=== PATIENT | female | born 1985 | race Caucasian/White ===

== ENCOUNTER 2017-05-07 20:41 | Emergency (ER) | payer MEDICAID, OTHER ==
[~2017-05-07] VITALS: Ht 160 cm; Wt 75.0 kg
[2017-05-07 20:44] VITALS: Ht 160 cm; Wt 75.0 kg
[2017-05-07] MEDS ORDERED: ACETAMINOPHEN 325 MG TAB PO ONE (21:00)
[2017-05-07] MEDS ORDERED: ACET325T33 PO (22:09)
--- NOTE | 2017-05-07 23:05 | ERD ---
ER Documentation Chief Complaint Date/Time DATE: 05/07/17 TIME: 23:03 Chief Complaint right ear pain, 36 weeks denies OB problems HPI 31-year-old female patient with no significant past medical history presents to the ED complaining of right ear pain and a foreign body sensation noted of her right ear that started 3 days ago. Denies putting any foreign bodies in her right ear. Denies any use of Q-tips. Denies any fever, cough, chills, nausea, vomiting, chest pain, shortness of breath, abdominal pain. Patient reports that her last menses was in October 06, 2017. States that she is a . ROS All systems reviewed and are negative except as per history of present illness. Medications Home Meds Active Scripts Acetaminophen* (Tylenol*) 325 Mg Tablet, 1 TAB PO Q6 Y for PAIN AND OR ELEVATED TEMP, #20 TAB Prov:CHELE PEDRAZA PA-C 05/07/17 Allergies Allergies: Coded Allergies: No Known Allergy (Unverified , 05/07/17) PMhx/Soc Medical and Surgical Hx: pt denies Medical Hx, pt denies Surgical Hx Hx Alcohol Use: No Hx Substance Use: No Hx Tobacco Use: No Smoking Status: Never smoker Physical Exam Vitals Vital Signs Date Time Temp Pulse Resp B/P Pulse Ox O2 Delivery O2 Flow Rate FiO2 05/07/17 20:44 98.2 82 20 123/74 97 Physical Exam Const: Zya-rty-vrsonjzqx, well-nourished. In no acute distress. Head: Atraumatic, normocephalic Eyes: Normal Conjunctiva without injection. No purulent discharge. PERRL. EOMI ENT: Normal external ear. Ear canal without erythema. Tympanic membrane pearly floers without effusion or bulging. Nasal canal clear with normal turbinates. Moist oropharynx without tonsillar exudates. Non-erythematous pharynx. Uvula midline. No drooling. No trismus. Neck: Full range of motion. No meningismus. No cervical lymphadenopathy. Resp: Clear to auscultation bilaterally. No wheezing, rhonchi, rales, or crackles. No accessory muscle use. No retractions. Cardio: Regular rate and rhythm. No murmurs, rubs or gallops. Abd: Soft, non tender, non distended. Normal bowel sounds. No palpable masses. No rebound tenderness. No guarding. Skin: No petechiae or rashes Back: No midline tenderness. No CVA tenderness. Ext: No cyanosis, or edema. Neur: Awake and alert. Psych: Normal Mood and Affect Results 24 hrs Current Medications Medications (Trade) Dose Ordered Sig/Teresa Route PRN Reason Start Time Stop Time Status Last Admin Dose Admin Acetaminophen (Tylenol Tab) 650 mg ONCE ONCE PO 05/07/17 21:00 05/07/17 21:01 DC 05/07/17 21:08 Procedures/MDM 31-year-old female patient who is a presents to the ED complaining of right ear pain that started 3 days ago. Patient is afebrile and nontoxic- appearing. Patient has normal vital signs. Patient was given Tylenol here in the ED with improvement of her symptoms. Patient did not have any foreign bodies noted of the right ear. There is a low suspicion for otitis media, otitis externa, ruptured tympanic membrane. Patient is afebrile and has normal vital signs. Patient's physical exam include lungs which were clear to auscultation and a normal pulse oximetry. There is a low suspicion for pneumonia , pneumothorax, mononucleosis, pulmonary embolism, epiglottitis, otitis media, otitis externa, viral/strep pharyngitis, sinusitis, peritonsillar abscess, mastoiditis, retropharyngeal abscess, meningitis, sepsis, acute abdomen or other emergent conditions. Discharge medications: Tylenol Patient was instructed to return to the ED for any new or worsening symptoms for a referral to ENT specialist/neurologist. They should otherwise follow up with the primary care provider within 1-2 days. The patient's questions were answered at the time of discharge. Patient understood and agreed with discharge management. Departure Diagnosis: Primary Impression: Foreign body sensation in right ear canal Additional Impression: Right ear pain Condition: Stable Patient Instructions: Understanding Outer Ear Problems, Common Middle Ear Problems, Earache W/O Infection (Adult) Referrals: COMMUNITY CLINICS YOU HAVE RECEIVED A MEDICAL SCREENING EXAM AND THE RESULTS INDICATE THAT YOU DO NOT HAVE A CONDITION THAT REQUIRES URGENT TREATMENT IN THE EMERGENCY DEPARTMENT. FURTHER EVALUATION AND TREATMENT OF YOUR CONDITION CAN WAIT UNTIL YOU ARE SEEN IN YOUR DOCTORS OFFICE WITHIN THE NEXT 1-2 DAYS. IT IS YOUR RESPONSIBILITY TO MAKE AN APPOINTMENT FOR FOLOW-UP CARE. IF YOU HAVE A PRIMARY DOCTOR --you should call your primary doctor and schedule an appointment IF YOU DO NOT HAVE A PRIMARY DOCTOR YOU CAN CALL OUR PHYSICIAN REFERRAL HOTLINE AT IF YOU CAN NOT AFFORD TO SEE A PHYSICIAN YOU CAN CHOSE FROM THE FOLLOWING [facility] [address] [facility] [address] [facility] [address] [facility] [address] [facility] [address] [facility]. [facility] [address] [facility]. [facility] YOU HAVE RECEIVED A MEDICAL SCREENING EXAM AND THE RESULTS INDICATE THAT YOU DO NOT HAVE A CONDITION THAT REQUIRES URGENT TREATMENT IN THE EMERGENCY DEPARTMENT. FURTHER EVALUATION AND TREATMENT OF YOUR CONDITION CAN WAIT UNTIL YOU ARE SEEN IN YOUR DOCTORS OFFICE WITHIN THE NEXT 1-2 DAYS. IT IS YOUR RESPONSIBILITY TO MAKE AN APPOINTMENT FOR FOLOW-UP CARE. IF YOU HAVE A PRIMARY DOCTOR --you should call your primary doctor and schedule and appointment IF YOU DO NOT HAVE A PRIMARY DOCTOR YOU CAN CALL OUR PHYSICIAN REFERRAL HOTLINE AT . IF YOU CAN NOT AFFORD TO SEE A PHYSICIAN YOU CAN CHOSE FROM THE FOLLOWING [facility]: [facility] [address] [place] [address] [facility] [address] [place] [address] [facility] + [facility] [address] [place] [address] [facility] URGENT [facility]/SPECIALTIES Additional Instructions: Visite a garcia mdico cedricana para un EXAMEN para caitlin referencia a un especialista en odos nariz garganta y neurlogo. Regrese a estas instalaciones si no se mejora deanna esperbamos o deanna le dijimos. CHELE PEDRAZA PA-C May 07, 2017 23:05 CHELE PEDRAZA PA-C May 07, 2017 23:05
== END 2017-05-07 22:15 | disposition home or self-care (01) ==
LOC: FTE 20:41
DX: H92.01 Otalgia, right ear (principal)
CPT/HCPCS: Z7502; Z7610; 99283

== ENCOUNTER 2017-06-07 07:05 | Inpatient (IN) | payer MEDICAID ==
[2017-06-07] VITALS (7 sets, daily range): BP systolic 110–138; BP diastolic 56–85; PULSE 63–77; RESP 18–19; Ht 149.9 cm; Wt 79.4 kg
[~2017-06-07] VITALS: Ht 149.9 cm; Wt 79.4 kg
[~2017-06-07 07:05] MED LIST: ACET325T33 PO
[2017-06-07] MEDS ORDERED: PREN1TAB17 PO (07:26)
[2017-06-07] MEDS ORDERED: OXYTOCIN 30 UNITS/LR 500 ML IV SCH (07:30)
[2017-06-07] MEDS ORDERED: OXYTOCIN 30 UNITS/LR 500 ML IV PRN ×2 (07:30→13:00)
[2017-06-07] MEDS ORDERED: CARBOPROST 250 MCG INJ IM PRN ×2 (07:30→13:00)
[2017-06-07] MEDS ORDERED: MISOPROSTOL 200 MCG TAB PR PRN ×2 (07:30→13:00)
[2017-06-07] MEDS ORDERED: METHYLERGONOVINE 0.2 MG INJ IM PRN ×2 (07:30→13:00)
[2017-06-07] MEDS ORDERED: CEFAZOLIN 2 GM/50 ML (PMX) 50 ML IV SCH (07:30)
[2017-06-07 08:00] LABS: WHITE BLOOD COUNT 9.6 10^3/ul (4.8-10.8)
[2017-06-07 08:01] LABS: BASOPHILS % 0.3 % (0.0-2.0); EOSINOPHILS # 0.9 10^3/ul (0.0-0.5); EOSINOPHILS % 9.6 % (0.0-7.0); HEMATOCRIT 39.5 % (37.0-47.0); HEMOGLOBIN 13.3 g/dl (12.0-16.0); LYMPHOCYTES # 2.1 10^3/ul (0.8-2.9); LYMPHOCYTES % 22.1 % (15.0-51.0); MEAN CORPUSCULAR HEMOGLOBIN 31.1 pg (29.0-33.0); MEAN CORPUSCULAR HGB CONC 33.7 g/dl (32.0-37.0); MEAN CORPUSCULAR VOLUME 92.3 fl (82.0-101.0); MEAN PLATELET VOLUME 10.6 fl (7.4-10.4); MONOCYTE # 0.7 10^3/ul (0.3-0.9); MONOCYTES % 7.2 % (0.0-11.0); NEUTROPHIL # 5.7 10^3/ul (1.6-7.5); NEUTROPHILS % 59.6 % (39.0-77.0); PLATELET COUNT 228 10^3/UL (140-415); RED BLOOD COUNT 4.28 10^6/ul (4.20-5.40); RED CELL DISTRIBUTION WIDTH 13.7 % (11.5-14.5)
[2017-06-07] MEDS ORDERED: LACTATED RINGER'S 1,000 ML IV ONE (08:30)
[2017-06-07 08:57] LABS: INR 0.9; PROTIME 12.1 Sec (12.2-14.2); PT RATIO 0.9
[2017-06-07 08:58] LABS: PARTIAL THROMBOPLASTIN TIME 28.2 Sec (25.0-35.0)
[2017-06-07] MEDS ORDERED: METOCLOPRAMIDE 10 MG INJ ONE (09:20)
[2017-06-07] MEDS ORDERED: ONDANSETRON 4 MG INJ ONE (09:20)
[2017-06-07] MEDS ORDERED: morphine SULFATE/PF (10 MG/10 ML) INJ ONE (09:20)
[2017-06-07] MEDS ORDERED: OXYTOCIN 10 UNIT INJ ONE (09:20)
[2017-06-07] MEDS ORDERED: EPHEDrine SULFATE 50 MG/5 ML SYG ONE (09:20)
[2017-06-07] MEDS ORDERED: OXYTOCIN 30 UNITS/LR 500 ML IV ONE (09:20)
[2017-06-07] MEDS ORDERED: NALOXONE (0.4 MG/ML) INJ IV PRN (10:30)
[2017-06-07] MEDS ORDERED: HYDROmorphONE 1 MG/ML SYG IV PRN ×2 (10:30)
[2017-06-07] MEDS ORDERED: EPHEDrine SULFATE 50 MG/5 ML SYG IV PRN (10:30)
[2017-06-07] MEDS ORDERED: DIPHENHYDRAMINE 50 MG INJ IV PRN (10:30)
[2017-06-07] MEDS ORDERED: morphine 2 MG INJ IV PRN ×2 (10:30)
[2017-06-07] MEDS ORDERED: ONDANSETRON 4 MG INJ IV PRN (10:30)
[2017-06-07] MEDS ORDERED: KETOROLAC 30 MG INJ IV PRN (10:30)
[2017-06-07] MEDS ORDERED: morphine SULFATE/PF (10 MG/10 ML) INJ SPINAL ONE (10:30)
--- NOTE | 2017-06-07 10:53 | HP ---
Date/Time of Note Date/Time of Note DATE: 06/07/17 TIME: 10:51 OB - History Hx of Present Free Text/Dictation @39+wks GA wiith previous c/section : 2 Para: 1 Care: Good Care Ultrasounds: Normal mid trimester US Obstetrical Complications: None Medical Complications: None Past Family/Social History * Past Medical, Surgical, Family and Obstetric Histories reviewed from chart. OB Admission Exam Vital Signs Vital Signs Vital Signs Date Time Temp Pulse Resp B/P Pulse Ox O2 Delivery O2 Flow Rate FiO2 06/07/17 07:20 98.1 120/79 Physical Exam Abdomen: WNL Extremities: Normal Membranes: Intact Heart Rate: 140's Decelerations: No Decelerations Varibility: Moderate Contractions on Admission: None Last 72 hours Lab Results CBC & BMP 06/07/17 07:47 OB Assessment/Plan Reason for admission: section MELANI HUNT M.D. Jun 07, 2017 10:53
--- NOTE | 2017-06-07 10:55 | OPR ---
Operative Report Planned Procedure Free Text/Dictation @39+wks GA onel previous c/section Procedure date Jun 07, 2017 Procedure(s) Repeat c/section Performed by: MELANI HUNT M.D. Assisting provider: CORNELIA TRAORE MD Anesthesiologist: JUAN KIRK MD Pre-procedure diagnosis @39+wks GA onel previous c/section Anesthesia Type: spinal Procedure Description Under satisfactory [] anesthesia, the patient was prepped and draped and placed in a supine position, tilted to the left. Pfannenstiel incision was made, carried through the subcutaneous tissue. Bleeders brought under control with electrocautery. Fascia incised to the length of the incision. Rectus muscles from the fascia, divided midline. Peritoneum exposed, entered through a transverse incision. Exploration of abdomen revealed gravid uterus. Bladder flap was developed. Transverse incision was made in the lower segment of the uterus. Amniotic sac ruptured. [] amniotic fluid noted. [] Nasal oropharyngeal suction was performed. The baby was handed to the team for immediate attention. The placenta was delivered manually intact. Uterine cavity was cleaned with wet sponge and drainage established. Uterus closed in 2 layers using [] in continuous fashion. Peritoneal cavity irrigated with warm saline. Sponge, needle and instrument count reported to be correct. Abdominal peritoneum closed with [] continuously. Rectus muscle approximated with []. Fascia closed with [], and skin closed with dermoband. Estimated blood loss [600 ]mL. Urine bag contained []mL of urine Post-Procedure Findings: Live Baby [], Apgars [] and [], weight [], position [], [] presentation []cord. Complications: None Pt Condition post procedure: stable Disposition: PACU Physician Certification I, the undersigned physician, hereby certify that I have discussed the procedure described in this consent form with this patient (or the patient's legal insurance verification representative), including: * The risk and benefits of the procedure; * Any adverse reactions that may reasonably be expected to occur; * Any alternative efficacious methods of treatment which may be medically viable ; * The potential problems that may occur during recuperation; * Potential for blood transfusion and associated risks/benefits; and * Any research or economic interest I may have regarding this treatment. I further certify that the patient/legally responsible person was encouraged to ask question and that all questions were answered. MELANI HUNT M.D. Jun 07, 2017 10:55
[2017-06-07] MEDS: LACTATED RINGER'S 1,000 ML IV SCH ×2 (12:48→18:55)
[2017-06-07] MEDS ORDERED: LANOLIN 7 GM TUBE TOP PRN (13:00)
[2017-06-07] MEDS: SENNA/DOCUSATE NA (8.6MG/50MG) TAB PO SCH (21:30)
[2017-06-08 00:30] VITALS: BP 117/58; PULSE 72; RESP 19
[2017-06-08] MEDS: LACTATED RINGER'S 1,000 ML IV SCH ×2 (03:15→12:48)
[2017-06-08 04:00] VITALS: BP 114/56; PULSE 75; RESP 19
[2017-06-08 08:00] VITALS: BP 116/71; PULSE 73; RESP 16
[2017-06-08] MEDS: SENNA/DOCUSATE NA (8.6MG/50MG) TAB PO SCH ×2 (08:57→21:40)
[2017-06-08 10:33] LABS: BASOPHILS % 0.2 % (0.0-2.0); EOSINOPHILS # 0.5 10^3/ul (0.0-0.5); HEMATOCRIT 36.6 % (37.0-47.0); HEMOGLOBIN 12.4 g/dl (12.0-16.0); LYMPHOCYTES # 1.3 10^3/ul (0.8-2.9); LYMPHOCYTES % 12.3 % (15.0-51.0); MEAN CORPUSCULAR HEMOGLOBIN 31.6 pg (29.0-33.0); MEAN CORPUSCULAR HGB CONC 33.9 g/dl (32.0-37.0); MEAN CORPUSCULAR VOLUME 93.1 fl (82.0-101.0); MEAN PLATELET VOLUME 10.9 fl (7.4-10.4); MONOCYTE # 0.6 10^3/ul (0.3-0.9); MONOCYTES % 5.8 % (0.0-11.0); NEUTROPHIL # 8.2 10^3/ul (1.6-7.5); NEUTROPHILS % 75.9 % (39.0-77.0); PLATELET COUNT 187 10^3/UL (140-415); RED BLOOD COUNT 3.93 10^6/ul (4.20-5.40); RED CELL DISTRIBUTION WIDTH 14.1 % (11.5-14.5); WHITE BLOOD COUNT 10.9 10^3/ul (4.8-10.8)
[2017-06-08] MEDS: IBUPROFEN 600 MG TAB PO SCH ×3 (12:00→23:37)
[2017-06-08] MEDS: OXYCODONE/ACETAMINOPHEN (5/325) TAB PO PRN (15:46)
[2017-06-08 16:00] VITALS: BP 125/66; PULSE 69; RESP 16
[2017-06-08 20:00] VITALS: BP 116/64; PULSE 66; RESP 18
[2017-06-09] MEDS: IBUPROFEN 600 MG TAB PO SCH ×3 (05:47→17:52)
[2017-06-09 08:00] VITALS: BP 124/72; PULSE 67; RESP 18
[2017-06-09] MEDS: SENNA/DOCUSATE NA (8.6MG/50MG) TAB PO SCH ×2 (10:10→21:26)
[2017-06-09] MEDS: OXYCODONE/ACETAMINOPHEN (5/325) TAB PO PRN ×2 (11:40→16:25)
[2017-06-09 16:00] VITALS: BP 124/60; PULSE 59; RESP 19
--- NOTE | 2017-06-09 19:08 | QN ---
Documentation Comment Late entry Note: 06/08/17 POD#1 Patient i stabel afebrile tolerates diet NO VB +Flatus Adequate urine VS Stable Gen NAD Abd soft NT ND Incision intact Genitalia No blood at perinium --->Discharge Home tomorrow MELANI HUNT M.D. Jun 09, 2017 19:08
--- NOTE | 2017-06-09 19:10 | DS ---
Date/Time of Note Date/Time of Note DATE: 06/09/17 TIME: 19:09 Discharge Summary Admission/Discharge Info Admit Date/Time Jun 07, 2017 at 07:05 Discharge Date/Time may Discharge Diagnosis post c/section Patient Condition: Stable Procedures repeat c/section Hospital Course uneventful Home Meds Active Scripts Acetaminophen* (Tylenol*) 325 Mg Tablet, 1 TAB PO Q6 Y for PAIN AND OR ELEVATED TEMP, #20 TAB Prov:CHELE PEDRAZA PA-C 05/07/17 Reported Medications Vit-Iron Fumarate-FA ( Tablet) 1 Each Tablet, 1 TAB PO DAILY, TAB 06/07/17 Primary Care Provider Care Physician No Primary MELANI HUNT M.D. Jun 09, 2017 19:10
[2017-06-09 20:15] VITALS: BP 124/80
[2017-06-10] MEDS: IBUPROFEN 600 MG TAB PO SCH ×3 (00:18→12:00)
[2017-06-10 07:50] VITALS: BP 130/69; PULSE 71; RESP 20
[2017-06-10] MEDS: OXYCODONE/ACETAMINOPHEN (5/325) TAB PO PRN (07:51)
[2017-06-10] MEDS: SENNA/DOCUSATE NA (8.6MG/50MG) TAB PO SCH (07:51)
[2017-06-10] MEDS ORDERED: DIPHTH/TET/ACEL PERTUSS (ADULT) 0.5 ML VIAL IM* ONE (09:00)
== END 2017-06-10 18:01 | disposition home or self-care (01) | DRG 766 ==
LOC: L-D 07:05 → PP1 13:06
PROVIDERS: ADMIT Obstetrics & Gynecology; ATTEND Obstetrics & Gynecology
PROC: 10D00Z1 Extraction of Products of Conception, Low, Open Approach (ICD-10-PCS; principal; 2017-06-07 09:00)
PROC: 3E0234Z Introduction of Serum, Toxoid and Vaccine into Muscle, Percutaneous Approach (ICD-10-PCS; 2017-06-10)
DX: O34.219 Maternal care for unspecified type scar from previous cesarean delivery (principal); Z23 Encounter for immunization; Z3A.39 39 weeks gestation of pregnancy; Z37.0 Single live birth
CPT/HCPCS: 85025; 85610; 85730; 86592; 86850; 86900; 86901; 90715; 94760; 99464; J0690; J1200; J1885; J2274; J2405; J2590; J2765; J7120

== ENCOUNTER 2018-02-22 16:23 | Emergency (ER) | END 2018-02-22 19:13 | disposition home or self-care (01) ==

== ENCOUNTER 2019-05-31 11:43 | Emergency (ER) | payer MEDICAID ==
[~2019-05-31] VITALS: Wt 68.2 kg
[~2019-05-31 11:43] MED LIST changes: +RANI150T35 PO
[2019-05-31 11:46] VITALS: BP 123/69; PULSE 85; RESP 20
--- NOTE | 2019-05-31 13:32 | ERD ---
ER Documentation Chief Complaint Chief Complaint feels faint, goldberg HPI 33-year-old female presents the emergency department complaining of generalized weakness for approximately 1 week. Patient states that over the last week she felt like she just does not have the energy that she normally has. She is concerned that her blood pressure might be high. She reports no chest pain, shortness of breath, headache. She reports no focal weakness or numbness. She reports no fevers or chills. Patient has no other significant symptoms. ROS All systems reviewed and are negative except as per history of present illness. Medications Home Meds Active Scripts Acetaminophen* (Tylenol*) 325 Mg Tablet, 2 TAB PO Q8 PRN for PAIN AND OR ELEVATED TEMP for 5 Days, #20 TAB Prov:JESSIE ROB MD 02/22/18 Ranitidine Hcl* (Zantac*) 150 Mg Tablet, 150 MG PO BID PRN for EPIGASTRIC PAIN for 7 Days, #14 TAB Prov:JESSIE ROB MD 02/22/18 Allergies Allergies: Coded Allergies: No Known Drug Allergies (Verified Allergy, Unknown, 06/07/17) PMhx/Soc History of Surgery: Yes ( x 2 ) Hx Neurological Disorder: No Hx Respiratory Disorders: No Hx Cardiac Disorders: No Hx Psychiatric Problems: No Hx Miscellaneous Medical Probl: No Hx Alcohol Use: No Hx Substance Use: No Hx Tobacco Use: No FmHx Noncontributory for chief complaint Physical Exam Vitals Vital Signs Date Temp Pulse Resp B/P (MAP) Pulse Ox O2 O2 Flow FiO2 Time Delivery Rate 05/31/19 99.2 85 20 123/69 98 11:46 (87) Physical Exam GENERAL: The patient is well developed and appropriate for usual state of health in no apparent distress HEENT: Pupils equal, round, and reactive to light. EOMI. There is no scleral icterus. NECK: C-spine is soft and supple, there is no meningismus. There is no cervical lymphadenopathy. LUNGS: Clear to auscultation bilaterally. There are no rales, wheezes or rhonchi. HEART: Regular rate and rhythm, no murmurs, clicks, rubs or gallops. ABDOMEN: Soft, non-tender, non-distended. There are bowel sounds in all four quadrants. No rebound or guarding. EXTREMITIES: There is no peripheral cyanosis or edema. No focal swelling or erythema. NEURO: The patient moves all four extremities with 5/5 strength. Cranial nerves II - XII are intact. Normal gait. Alert and oriented SKIN: There is no apparent rash or petechiae. HEME/LYMPHATIC: There is no evidence of excessive bruising or lymphedema. PSYCHIATRIC: The patient does not appear anxious or depressed. Results 24 hrs Laboratory Tests Test 05/31/19 13:11 05/31/19 13:20 Bedside Glucose 100 mg/dL POC Beta HCG, Qualitative NEGATIVE Procedures/MDM Patient was taken to a room, seen and examined Medical decision makin-year-old female presents with generalized weakness. test is negative, blood sugar is normal. Her blood pressure, which is her main concern, was also normal. She had no clinical evidence on history or physical examination of localized infection and no evidence of focal neurologic findings at all. Overall, patient is clinically well and reassured and seems to be appropriate for discharge at this time. Departure Diagnosis: Primary Impression: Weakness Condition: Stable Patient Instructions: Generalized Weakness Additional Instructions: All test results today were normal Please see your doctor for any concerns this week if not improving. EDIE FIORE May 31, 2019 13:32
== END 2019-05-31 13:50 | disposition home or self-care (01) ==
LOC: FTE 11:43
DX: R53.1 Weakness (principal)
CPT/HCPCS: 81025; 82962; 99282